=== PATIENT | male | born 1995 | race African-American/Black ===

== ENCOUNTER 2024-03-15 17:50 | Emergency (ER) | payer SELFPAY ==
[~2024-03-15] VITALS: Ht 177.8 cm; Wt 146.0 kg
[2024-03-15 17:53] VITALS: TEMP 98.7; O2SAT 96
[2024-03-15] MEDS: MORPHINE SULFATE 4 MG/ML INJ (FOR IV/IM USE) IV ONE (18:08)
[2024-03-15] MEDS: CEFAZOLIN 1000MG PREMIX 50 ML IV ONE (18:13)
[2024-03-15 18:15] LABS: BASOPHILS % 0.6 % (0.0-2.0); DIFFERENTIAL COMMENT 0; EOSINOPHILS % 0.8 % (0.0-5.0); HEMATOCRIT. 38.4 % (42.0-52.0); HEMOGLOBIN. 11.9 g/dL (14.0-18.0); LYMPHOCYTES % 42.5 % (20.0-50.0); MEAN CORPUSCULAR HGB CONC 30.9 g/dL (31.0-37.0); MEAN CORPUSCULAR VOLUME 74.2 fL (80.0-94.0); MEAN PLATELET VOLUME 7.6 fl (7.4-10.4); MONOCYTES % 8.9 % (2.0-8.0); NEUTROPHILS % 47.2 % (40.0-76.0); PLATELET 380 x1000/uL (130-400); RED BLOOD CELL COUNT 5.18 mill/uL (4.7-6.1); RED CELL DISTRIBUTION WIDTH 17.6 % (11.6-14.6); WHITE BLOOD COUNT 22.9 x1000/uL (4.5-11.0)
[2024-03-15 18:19] LABS: CHLORIDE 103 mEq/L (98-107); POTASSIUM 4.1 mEq/L (3.5-5.1); SODIUM 137 mEq/L (136-145)
[2024-03-15 18:20] LABS: CALCIUM 9.4 mg/dL (8.7-10.4); CARBON DIOXIDE 18 mEq/L (21-32)
[2024-03-15 18:25] LABS: CREATININE 0.9 mg/dL (0.6-1.3); GLUCOSE 115 mg/dL (70-105); UREA NITROGEN BLOOD 13 mg/dL (9-23)
[2024-03-15 19:14] VITALS: BP 126/78; PULSE 80; RESP 19
[2024-03-15] MEDS: MORPHINE SULFATE 4 MG/ML INJ (FOR IV/IM USE) IV NR (19:14)
== END 2024-03-15 19:15 | disposition short-term general hospital (02) ==
LOC: ER 17:50
DX: S72.8X1A Other fracture of right femur, initial encounter for closed fracture (principal); F19.90 Other psychoactive substance use, unspecified, uncomplicated; W34.09XA Accidental discharge from other specified firearms, initial encounter; Y93.89 Activity, other specified; Y92.89 Other specified places as the place of occurrence of the external cause; Y99.8 Other external cause status
CPT/HCPCS: 99291; 96365; 96375; 80048; 85025; 36415; 73551; 71045; 72170; 96376; J0690; J2270